=== PATIENT | female | born 2000 | race Hispanic/Latino ===

== ENCOUNTER 2020-07-08 15:07 | Emergency (ER) | payer SELFPAY ==
[2020-07-08 15:25] VITALS: BP 109/85
[2020-07-08 18:42] LABS: HCG Qualitative,Urine Positive (Negative)
== END 2020-07-08 22:26 | disposition left against medical advice (07) ==
LOC: ED 15:07
DX: Z53.21 Procedure and treatment not carried out due to patient leaving prior to being seen by health care provider (principal)
CPT/HCPCS: 81025